=== PATIENT | male | born 1960 | race Two or more races ===

== ENCOUNTER 2017-12-17 09:39 | Emergency (ER) | payer MEDICARE, OTHER ==
[~2017-12-17] VITALS: Ht 162.6 cm; Wt 71.4 kg
[2017-12-17 09:42] VITALS: BP 152/101
[2017-12-17] MEDS ORDERED: LIDOCAINE 2%, 20ML SQ ONE (10:30)
== END 2017-12-17 13:23 | disposition home or self-care (01) ==
LOC: ED 13:20
DX: L02.01 Cutaneous abscess of face (principal)
CPT/HCPCS: 10060; 99284